=== PATIENT | female | born 1995 | race Two or more races ===

== ENCOUNTER 2024-06-18 10:15 | Emergency (ER) | payer MEDICAID, SELFPAY ==
[2024-06-18 10:28] VITALS: BP 116/76; PULSE 83; RESP 16; TEMP 37.2; O2SAT 96; BMI 27.3
--- NOTE | 2024-06-18 10:39 | XR_ITS ---
Examination: Complete OB ultrasound, less than 14 weeks, transabdominal Date and time of exam: June 18, 2024 1113 hours INDICATIONS: Onset vaginal bleeding beginning 3 days ago Technique: Obstetrical ultrasound images less than 14 weeks performed via transabdominal imaging Findings: A normal shaped single intrauterine gestation is present in the uterus. pole 1.8 cm corresponds to 8 weeks 2 days gestational age Cardiac motion 173 BPM Ultrasonographic survey of visible and placental structures unremarkable. Amniotic fluid volume appears appropriate for this estimated gestational age. Right ovary 3.1 cm arterial flow Left ovary 5.9 cm arterial flow multiple cysts, the largest 3.1 cm, suspicious for left hydrosalpinx IMPRESSION: Viable intrauterine gestation 8 weeks 2 days.
--- NOTE | 2024-06-18 11:09 | PD.EDRME ---
Rapid Medical Screening Exam E Arrival date/time: 06/18/24 10:15 29-year-old female with no known medical history presents to the emergency room with a chief complaint of vaginal spotting x 3 days. Patient states she is currently 10 to 12 weeks . Patient is also having some vaginal cramping and denies dysuria. I have greeted and performed a focused initial assessment of this patient. A comprehensive ED assessment and evaluation of the patient, analysis of all test results, and completion of the medical decision making process will be conducted by additional ED providers. Chief Complaint: Hip Injury/Pain Time Seen by Provider: 06/18/24 10:25 Vital signs: Vital Signs Temperature 98.9 F 06/18/24 10:28 Pulse Rate 83 06/18/24 10:28 Respiratory Rate 16 06/18/24 10:28 Blood Pressure 116/76 06/18/24 10:28 Pulse Oximetry (%) 96 06/18/24 10:28 Oxygen Delivery Method Room Air 06/18/24 10:28 Vital signs reviewed by provider: Yes
[2024-06-18 11:11] LABS: Basophils # (Auto) 0.1 Thou/mm3 (0.0-0.2); Basophils % (Auto) 0 % (0-2.5); Eosinophils # (Auto) 0.2 Thou/mm3 (0.0-0.5); Eosinophils % (Auto) 2 % (0-10); Hematocrit 37.5 % (36.0-46.0); Hemoglobin 13.3 g/dL (12.0-16.0); Immature Granulocytes % (Auto) 0 % (0-0); Immature Granulocytes Auto 0.05 Thou/mm3 (0.00-0.00); Lymphocytes % (Auto) 17 % (10-50); Mean Corpuscular HGB Conc 35.5 g/dl (31.0-37.0); Mean Corpuscular Hemoglobin 32.2 pg (25.0-35.0); Mean Corpuscular Volume 91 fL (80-100); Monocytes # (Auto) 0.7 Thou/mm3 (0.0-0.8); Monocytes % (Auto) 6 % (0-12); Neutrophils # (Auto) 8.6 Thou/mm3 (1.8-7.7); Neutrophils % (Auto) 75 % (37-80); Nucleated Red Blood Cell % 0 /100 WBC (0); Platelet Count 240 Thou/mm3 (140-440); RDW Standard Deviation 38.8 fL (36.4-46.3); Red Blood Count 4.13 Miln/mm3 (4.00-5.20); White Blood Count 11.5 Thou/mm3 (3.6-11.0)
[2024-06-18 11:33] LABS: Alanine Aminotransferase 45 U/L (10-49); Albumin, Serum 4.4 gm/dL (3.5-5.0); Albumin/Globulin Ratio 1.7 (1.2-2.2); Alkaline Phosphatase 69 U/L (46-116); Anion Gap 7 (7-16); Aspartate Amino Transferase 21 U/L (0-34); BUN/Creatinine Ratio 10 Ratio (12-20); Bilirubin,Total 0.5 mg/dL (0.3-1.2); Blood Urea Nitrogen 7 mg/dL (9-23); Calcium 8.7 mg/dL (8.3-10.6); Calcium (Corrected) 8.7 mg/dL (8.5-10.1); Carbon Dioxide 24.8 mMol/L (20.0-31.0); Chloride 105 mMol/L (98-107); Creatinine (Component) 0.7 mg/dL (0.6-1.3); Estimated Creatinine Clearance 111.3 mL/min (>60); Globulin 2.6 gm/dL (2.3-3.5); Glucose 123 mg/dL (74-106); Osmolality,Calculated 272 (275-295); Potassium 3.9 mMol/L (3.4-5.1); Sodium 137 mMol/L (136-145); eGFR > 60 See Note
[2024-06-18 11:49] LABS: Collection Type, Urine Clean Catch
[2024-06-18 12:25] LABS: Bilirubin,Urine Negative (Negative); Blood,Urine 1+ (Negative); Clarity,Urine Clear (Clear/Hazy); Color,Urine Lt-Yellow (Lt Yel-Yel); Glucose, Urine Negative (Negative); Ketones,Urine Negative (Negative); Leukocyte Esterase,Urine Positive (Negative); Nitrite,Urine Negative (Negative); Protein,Urine Negative (Neg - Trace); RBC,Urine 2 /hpf (0-3); Specific Gravity,Urine 1.008 (1.001-1.035); Squamous Epithelial Cell,Urine 1 /hpf (0-5); Urobilinogen,Urine Negative mg/dL (0.0-1.0); WBC,Urine 2 /hpf (0-5)
[2024-06-18 13:54] VITALS: BP 139/82; PULSE 73; RESP 16; TEMP 36.6; O2SAT 99
--- NOTE | 2024-06-18 14:11 | PD.EDADULT ---
ED General RME/HPI General Chief complaint: Hip Injury/Pain Stated complaint: Pain in bones and hips (11 weeks ) Time Seen by Provider: 06/18/24 10:25 Arrival date/time: 06/18/24 10:15 29-year-old female presents to the ED with a complaint of allover body and bone pain as well as upper back pain and lung pain, and vaginal spotting for 3 days only with wiping. She is 5 para 3 with 1 SAB. Currently 10 to 12 weeks . She denies any fevers or chills, has had some nausea and vomiting. No diarrhea or constipation. She denies any dysuria or frequency. She has not seen her OB physician yet. RME / HPI RME / HPI narrative: 06/18/24 10:15 29-year-old female with no known medical history presents to the emergency room with a chief complaint of vaginal spotting x 3 days. Patient states she is currently 10 to 12 weeks . Patient is also having some vaginal cramping and denies dysuria. I have greeted and performed a focused initial assessment of this patient. A comprehensive ED assessment and evaluation of the patient, analysis of all test results, and completion of the medical decision making process will be conducted by additional ED providers. Related Data Previous Rx's ?Medication ?Instructions ?Recorded ibuprofen 400 mg tablet 800 mg (2 x 400 mg) PO Q8HR PRN 02/09/14 PAIN #28 tabs ibuprofen 600 mg tablet 600 mg PO Q6H #30 tabs 02/26/22 acetaminophen 650 mg 650 mg PO Q8H PRN pain #30 tabs 06/18/24 tablet,extended release Allergies Allergy/AdvReac Type Severity Reaction Status Date / Time No Known Allergies Allergy Verified 06/18/24 10:21 Review of Systems Review of Systems Systems Reviewed: All systems reviewed, normal except as documented Past Medical History Social History SMOKING STATUS: Never smoker ED Exam General General appearance: Present alert and in no apparent distress Head Head exam: Present atraumatic and normal inspection Eye Eye exam: Present normal appearance; Absent scleral icterus or conjunctival injection Neck Neck exam: Present normal inspection and full ROM Chest Chest inspection: Present normal inspection and symmetric chest wall rise Respiratory Respiratory exam: Present other (Diminished breath sounds at the bases. No rhonchi, wheezing, rales noted.); Absent respiratory distress Cardiovascular Cardiovascular exam: Present regular rate and normal rhythm Abdominal Exam Abdominal exam: Present soft; Absent distention, tenderness, guarding or rebound Extremities Exam Extremities exam: Present normal inspection and full ROM Back Exam Back exam: Present full ROM; Absent CVA tenderness (R) or CVA tenderness (L) Neurological Exam Neurological exam: Present alert and oriented X3 Psychiatric Psychiatric exam: Present depressed and flat affect Skin Skin exam: Present warm, dry, intact and normal color Course Course Course Narrative: Labs reveal a mildly elevated white count of 11.5, normal H&H and platelets. Chemistry panel reveals a glucose of 123, BUN 7, creatinine 0.7, LFTs are normal. Beta-hCG quant is 179,785. ultrasound reveals a live intrauterine gestational sac at 8 weeks 2 days with a heart rate of 178. Due to the patient explaining symptoms of lung pain, body aches, and nausea and vomiting for the past 8 days, and influenza and COVID swab were obtained as well as a 2 view chest x-ray with the patient's abdomen shielded. COVID and influenza A/B swabs are negative. XR chest reveals: No active disease. Quality Measures none Orders Category Date Time Status Bedside COVID-19 Antigen Test NOW Care 06/18/24 14:13 Completed Bedside Influenza A&B Antigen Test NOW Care 06/18/24 14:13 Completed US OB <= 14 weeks fetus Stat Exams 06/18/24 10:39 Completed XR chest 2V Stat Exams 06/18/24 14:13 Completed ABO/RH Type Stat Lab 06/18/24 10:55 Completed Beta HCG,Quantitative Stat Lab 06/18/24 10:55 Completed CBC Stat Lab 06/18/24 10:55 Completed CMP [Comprehensive Metabolic Panel] Stat Lab 06/18/24 10:55 Completed UA [Urinalysis] Stat Lab 06/18/24 11:30 Completed Vital Signs Vital signs: Vital Signs Temperature 98.9 F 06/18/24 10:28 Pulse Rate 83 06/18/24 10:28 Respiratory Rate 16 06/18/24 10:28 Blood Pressure 116/76 06/18/24 10:28 Pulse Oximetry (%) 96 06/18/24 10:28 Oxygen Delivery Method Room Air 06/18/24 10:28 Discharge Plan Plan Patient Disposition: HOME (Self Care) Discharge Disposition comment: Stable Prescriptions/Referrals Prescriptions/Med Rec: New acetaminophen 650 mg tablet extended release 650 mg PO Q8H PRN (Reason: pain) Qty: 30 0RF No Action ibuprofen 400 MG tablet 800 mg PO Q8HR PRN (Reason: PAIN) Qty: 28 0RF ibuprofen 600 mg tablet 600 mg PO Q6H Qty: 30 0RF Referrals: No Primary/Family,Physician [Primary Care Provider] - In 1 week Problem List Clinical Impression: Acute viral syndrome, Patient/Caregiver Discharge Instructions Education Materials: First Trimester, ED Viral Syndrome (Adult) Additional Instructions: Follow-up with your primary care physician in 24 to 48 hours. Return to the ED for any new or worsening symptoms. Print Language: Indonesian Stand Alone Forms: [email or web address] Award Info., Patient Portal Info Letter PA/CHANDLER Supervising Physician PA/CHANDLER Supervising Physician: Dr. Shannon MDM Narrative MDM hospital course (for use when minimal MDM required): 29-year-old female presents to the ED with a complaint of allover body and bone pain as well as upper back pain and lung pain, and vaginal spotting for 3 days only with wiping. She is 5 para 3 with 1 SAB. Currently 10 to 12 weeks . She denies any fevers or chills, has had some nausea and vomiting. No diarrhea or constipation. She denies any dysuria or frequency. She has not seen her OB physician yet. Exam reveals an alert and oriented 29-year-old, Indonesian-speaking female, [employer] farm attendant used, appears with a flat affect and depressed. No acute distress. Trachea is midline, no respiratory distress noted lungs are diminished at the bases bilaterally. Cardiovascular regular rate and rhythm without murmurs. Abdomen is soft and nontender. Labs reveal a mildly elevated white count of 11.5, normal H&H and platelets. Chemistry panel reveals a glucose of 123, BUN 7, creatinine 0.7, LFTs are normal. Beta-hCG quant is 179,785. ultrasound reveals a live intrauterine gestational sac at 8 weeks 2 days with a heart rate of 178. Due to the patient explaining symptoms of lung pain, body aches, and nausea and vomiting for the past 8 days, and influenza and COVID swab were obtained as well as a 2 view chest x-ray with the patient's abdomen shielded. COVID and influenza A/B swabs are negative. XR chest reveals: No active disease. Clinical Information Provided by: patient (Through [employer]) Medical Records reviewed None Meds/Rx considered, not ordered None Labs/Rad/Tests considered, not ordered None Chronic Illness/Social Conditions which may negatively complicate care or outcome(s)-explain: None or not applicable EKG EKG not done Labs Labs: Interpreted by me Lab(s) Interpretation(s): As noted above Imaging Imaging interpretation: none or see narrative above Imaging Interpretation(s): As noted above Medication Administration(s) none Diagnosis Differential Diagnosis ED Complaint MDM: Body aches, lung pain, vaginal spotting in
--- NOTE | 2024-06-18 14:13 | XR_ITS ---
Examination: PA lateral chest 2 views TECHNIQUE: Upright PA lateral chest 2 views Exam date and time: June 18, 2024 1431 hours INDICATIONS: Bodyaches today FINDINGS: Normal heart size Lungs are clear. The osseous structures are intact IMPRESSION: No active disease
== END 2024-06-18 15:59 | disposition home or self-care (01) ==
PROVIDERS: Nurse Practitioner Family; Emergency Provider Family Medicine
DX: O98.511 Other viral diseases complicating pregnancy, first trimester (principal); B34.9 Viral infection, unspecified; O20.9 Hemorrhage in early pregnancy, unspecified; Z3A.08 8 weeks gestation of pregnancy
CPT/HCPCS: 36415; 71046; 76801; 80053; 81001; 84702; 85025; 86900; 86901; 87400; 87811; 99284